=== PATIENT | male | born 1995 | race African-American/Black ===

== ENCOUNTER 2018-10-12 17:24 | Emergency (ER) | payer MEDICAID ==
[~2018-10-12] VITALS: Ht 188 cm; Wt 66.0 kg
[2018-10-12 19:52] VITALS: BP 116/65
== END 2018-10-12 20:54 | disposition left against medical advice (07) ==
LOC: ER 17:24
DX: Z53.21 Procedure and treatment not carried out due to patient leaving prior to being seen by health care provider (principal)